=== PATIENT | male | born 1985 | race Two or more races ===

== ENCOUNTER 2021-03-05 12:33 | Inpatient (IN) | payer OTHER ==
[~2021-03-05] VITALS: Ht 172.7 cm; Wt 77.0 kg
[2021-03-05] MEDS ORDERED: cefTRIAXone 1GM/50ML D5W 50 ML IV ONE (14:45)
[2021-03-05] MEDS ORDERED: CLINDAMYCIN 900MG IV 50 ML IV ONE (14:45)
[2021-03-05] MEDS ORDERED: SODIUM CHLORIDE 0.9% 1,000 ML IV ONE (14:45)
[2021-03-05 15:28] LABS: Basophils # (auto) 0 10 ^3/uL (0-0.2); Basophils % (auto) 0.3 % (0.0-2.0); Eosinophils # (auto) 0.1 10 ^3/uL (0-0.8); Eosinophils % (auto) 0.9 % (0.0-7.0); Hematocrit 43.8 % (41.0-53.0); Hemoglobin 15.1 g/dL (13.5-17.5); Lymphocytes # (auto) 0.7 10 ^3/uL (0.4-5.4); Lymphocytes % (auto) 4.8 % (10.0-50.0); Mean Corpuscular Hemoglobin 31.4 pg (28.0-32.0); Mean Corpuscular Hgb Conc. 34.5 g/dL (32.0-36.0); Mean Corpuscular Volume 91.2 fL (80.0-100.0); Monocytes # (auto) 1.4 10 ^3/uL (0-1.3); Monocytes % (auto) 9.1 % (0.0-12.0); Neutrophils % (auto) 84.9 % (37.0-80.0); Red Blood Cells 4.81 10^6/uL (4.5-5.90); Red Cell Distribution Width 13.1 % (11.8-14.3); White Blood Cell 15.3 10^3/uL (4.4-10.8)
[2021-03-05 15:47] LABS: Calcium 8.8 mg/dL (8.5-10.1); Potassium 5.2 mmol/L (3.5-5.1)
[2021-03-05 15:52] LABS: Albumin 3.2 g/dL (3.4-5.0); BUN/Creatinine Ratio 12.5; Total Protein 7.9 g/dL (6.4-8.2)
[2021-03-05] MEDS ORDERED: IOHEXOL 300 MG/ML 100ML BOTTLE IJ ONE (16:08)
[2021-03-05] MEDS ORDERED: VANCOMYCIN PER PHARMACY 0 MG IV SCH (18:30)
[2021-03-05] MEDS ORDERED: VANCOMYCIN 1GM/250ML 250 ML IV SCH (22:00)
[2021-03-05] MEDS: VANCOMYCIN 1GM/250ML 250 ML IV SCH (22:32)
[2021-03-05 22:42] VITALS: BP 112/70
[2021-03-06] MEDS ORDERED: ONDANSETRON HCL 4 MG/2 ML VIAL IV PRN (02:00)
[2021-03-06 05:00] VITALS: BP 108/70
[2021-03-06] MEDS: VANCOMYCIN 1GM/250ML 250 ML IV SCH ×2 (05:50→17:43)
[2021-03-06 06:44] LABS: Basophils # (auto) 0 10 ^3/uL (0-0.2); Basophils % (auto) 0.3 % (0.0-2.0); Eosinophils # (auto) 0.1 10 ^3/uL (0-0.8); Eosinophils % (auto) 0.8 % (0.0-7.0); Hematocrit 36.3 % (41.0-53.0); Hemoglobin 12.4 g/dL (13.5-17.5); Lymphocytes # (auto) 0.9 10 ^3/uL (0.4-5.4); Lymphocytes % (auto) 6.3 % (10.0-50.0); Mean Corpuscular Hemoglobin 31.1 pg (28.0-32.0); Mean Corpuscular Hgb Conc. 34.3 g/dL (32.0-36.0); Mean Corpuscular Volume 90.7 fL (80.0-100.0); Monocytes # (auto) 1.5 10 ^3/uL (0-1.3); Monocytes % (auto) 10.8 % (0.0-12.0); Neutrophils # (auto) 11.6 10 ^3/uL (1.6-8.6); Neutrophils % (auto) 81.8 % (37.0-80.0); Nucleated Red Blood Cells % 0.1 %; Red Blood Cells 4.01 10^6/uL (4.5-5.90); Red Cell Distribution Width 12.9 % (11.8-14.3); White Blood Cell 14.1 10^3/uL (4.4-10.8)
[2021-03-06 09:00] VITALS: BP 101/71
[2021-03-06] MEDS: ENOXAPARIN SOD 40 MG/0.4 ML SYRINGE SC SCH (10:00)
[2021-03-06 11:44] LABS: INR 1.1 (0.9-1.15); Partial Thromboplastin Time 33.9 sec (23.6-33.0)
[2021-03-06] MEDS: PIPERACILLIN-TAZO 4.5GM 100 ML IV SCH ×2 (12:57→21:18)
[2021-03-06 13:00] VITALS: BP 116/69
[2021-03-06 17:00] VITALS: BP 112/71
[2021-03-06 22:02] VITALS: BP 109/69
[2021-03-07] MEDS: VANCOMYCIN 1GM/250ML 250 ML IV SCH ×3 (02:48→20:30)
[2021-03-07] MEDS: PIPERACILLIN-TAZO 4.5GM 100 ML IV SCH ×3 (04:31→20:45)
[2021-03-07 05:25] VITALS: BP 111/68
[2021-03-07 07:09] LABS: Basophils # (auto) 0.1 10 ^3/uL (0-0.2); Basophils % (auto) 0.6 % (0.0-2.0); Eosinophils # (auto) 0.2 10 ^3/uL (0-0.8); Eosinophils % (auto) 1.6 % (0.0-7.0); Hematocrit 36.6 % (41.0-53.0); Hemoglobin 12.6 g/dL (13.5-17.5); Lymphocytes # (auto) 0.8 10 ^3/uL (0.4-5.4); Lymphocytes % (auto) 6.7 % (10.0-50.0); Mean Corpuscular Hemoglobin 31.1 pg (28.0-32.0); Mean Corpuscular Hgb Conc. 34.4 g/dL (32.0-36.0); Mean Corpuscular Volume 90.3 fL (80.0-100.0); Monocytes # (auto) 1.1 10 ^3/uL (0-1.3); Neutrophils # (auto) 9.6 10 ^3/uL (1.6-8.6); Neutrophils % (auto) 82.1 % (37.0-80.0); Nucleated Red Blood Cells % 0.1 %; Red Blood Cells 4.06 10^6/uL (4.5-5.90); White Blood Cell 11.7 10^3/uL (4.4-10.8)
[2021-03-07 07:26] LABS: BUN/Creatinine Ratio 11.1; Calcium 8.2 mg/dL (8.5-10.1); Potassium 3.5 mmol/L (3.5-5.1)
[2021-03-07 09:00] VITALS: BP 112/75
[2021-03-07] MEDS: ENOXAPARIN SOD 40 MG/0.4 ML SYRINGE SC SCH (10:00)
[2021-03-07] MEDS: HYDROcodone-ACET 10/325MG TAB PO PRN ×2 (12:08→23:01)
[2021-03-07] MEDS ORDERED: LIDOCAINE 1% HCL (LOCAL ANESTH.) INJ 20ML MDV ID ONE (12:15)
[2021-03-07] MEDS ORDERED: LIDOCAINE 1% HCL (LOCAL ANESTH.) INJ 20ML MDV ONE (12:23)
[2021-03-07] MEDS ORDERED: BUPIVACAINE 0.5% MPF INJ 30ML SDV IJ ONE (12:23)
[2021-03-07 13:00] VITALS: BP 120/70
[2021-03-07 17:00] VITALS: BP 114/69
[2021-03-07 22:00] VITALS: BP 113/73
[2021-03-08] MEDS: VANCOMYCIN 1GM/250ML 250 ML IV SCH ×4 (01:00→23:38)
[2021-03-08] MEDS: PIPERACILLIN-TAZO 4.5GM 100 ML IV SCH ×3 (04:15→20:57)
[2021-03-08 05:00] VITALS: BP 108/67
[2021-03-08 09:00] VITALS: BP 104/66
[2021-03-08] MEDS: ENOXAPARIN SOD 40 MG/0.4 ML SYRINGE SC SCH (10:00)
[2021-03-08] MEDS: HYDROcodone-ACET 10/325MG TAB PO PRN (11:21)
[2021-03-08 13:00] VITALS: BP 112/69
[2021-03-08 17:22] VITALS: BP 110/72
[2021-03-08 22:01] VITALS: BP 112/64
[2021-03-09] MEDS: PIPERACILLIN-TAZO 4.5GM 100 ML IV SCH ×3 (04:45→20:49)
[2021-03-09 05:00] VITALS: BP 106/67
[2021-03-09 06:49] LABS: Basophils # (auto) 0 10 ^3/uL (0-0.2); Basophils % (auto) 0.5 % (0.0-2.0); Eosinophils # (auto) 0.3 10 ^3/uL (0-0.8); Eosinophils % (auto) 3.5 % (0.0-7.0); Hematocrit 40.2 % (41.0-53.0); Hemoglobin 14.2 g/dL (13.5-17.5); Lymphocytes % (auto) 13.1 % (10.0-50.0); Mean Corpuscular Hemoglobin 31.8 pg (28.0-32.0); Mean Corpuscular Hgb Conc. 35.2 g/dL (32.0-36.0); Mean Corpuscular Volume 90.2 fL (80.0-100.0); Monocytes # (auto) 0.8 10 ^3/uL (0-1.3); Monocytes % (auto) 10.8 % (0.0-12.0); Neutrophils # (auto) 5.4 10 ^3/uL (1.6-8.6); Neutrophils % (auto) 72.1 % (37.0-80.0); Red Blood Cells 4.46 10^6/uL (4.5-5.90); Red Cell Distribution Width 12.9 % (11.8-14.3); White Blood Cell 7.5 10^3/uL (4.4-10.8)
[2021-03-09 09:00] VITALS: BP 116/64
[2021-03-09] MEDS: VANCOMYCIN 1GM/250ML 250 ML IV SCH ×2 (09:34→18:22)
[2021-03-09] MEDS: ENOXAPARIN SOD 40 MG/0.4 ML SYRINGE SC SCH (09:34)
[2021-03-09] MEDS: HYDROcodone-ACET 10/325MG TAB PO PRN (09:58)
[2021-03-09 13:00] VITALS: BP 121/80
[2021-03-09 17:00] VITALS: BP 121/76
[2021-03-09 22:00] VITALS: BP 113/67
[2021-03-10] MEDS: HYDROcodone-ACET 10/325MG TAB PO PRN (00:27)
[2021-03-10] MEDS: VANCOMYCIN 1GM/250ML 250 ML IV SCH ×3 (02:54→18:37)
[2021-03-10] MEDS: PIPERACILLIN-TAZO 4.5GM 100 ML IV SCH ×3 (04:18→21:45)
[2021-03-10 05:00] VITALS: BP 114/70
[2021-03-10 09:00] VITALS: BP 128/80
[2021-03-10] MEDS: ENOXAPARIN SOD 40 MG/0.4 ML SYRINGE SC SCH (10:02)
[2021-03-10 12:12] LABS: Anion Gap 8 (5-15); BUN/Creatinine Ratio 16.2; Blood Urea Nitrogen 12 mg/dL (7-18); Calcium 8.4 mg/dL (8.5-10.1); Carbon Dioxide 29 mmol/L (21-32); Chloride 101 mmol/L (98-107); GFR African American 153 mL/min; GFR Non-African American 126 mL/min; Glucose 119 mg/dL (74-106); Potassium 4.2 mmol/L (3.5-5.1); Sodium 138 mmol/L (136-145)
[2021-03-10 13:00] VITALS: BP 121/74
[2021-03-10 16:46] VITALS: BP 115/69
[2021-03-10 22:00] VITALS: BP 122/77
[2021-03-11] MEDS: VANCOMYCIN 1GM/250ML 250 ML IV SCH ×3 (02:03→18:00)
[2021-03-11] MEDS: PIPERACILLIN-TAZO 4.5GM 100 ML IV SCH ×3 (04:14→22:01)
[2021-03-11 05:00] VITALS: BP 110/78
[2021-03-11] MEDS: ENOXAPARIN SOD 40 MG/0.4 ML SYRINGE SC SCH (09:04)
[2021-03-11 13:01] VITALS: BP 110/75
[2021-03-11 18:25] VITALS: BP 114/86
[2021-03-11 22:00] VITALS: BP 112/72
[2021-03-11] MEDS ORDERED: ACETAMINOPHEN 325 MG TAB PO PRN (22:30)
[2021-03-12] MEDS: VANCOMYCIN 1GM/250ML 250 ML IV SCH ×3 (01:30→17:30)
[2021-03-12] MEDS: PIPERACILLIN-TAZO 4.5GM 100 ML IV SCH ×3 (04:00→21:14)
[2021-03-12 05:33] VITALS: BP 104/65
[2021-03-12 09:00] VITALS: BP 120/75
[2021-03-12] MEDS: ENOXAPARIN SOD 40 MG/0.4 ML SYRINGE SC SCH (09:43)
[2021-03-12 13:00] VITALS: BP 112/71
[2021-03-12 13:56] LABS: Basophils # (auto) 0.2 10 ^3/uL (0-0.2); Basophils % (auto) 1.9 % (0.0-2.0); Eosinophils # (auto) 0 10 ^3/uL (0-0.8); Eosinophils % (auto) 0.5 % (0.0-7.0); Hematocrit 43.7 % (41.0-53.0); Hemoglobin 14.6 g/dL (13.5-17.5); Lymphocytes # (auto) 0.9 10 ^3/uL (0.4-5.4); Mean Corpuscular Hemoglobin 30.3 pg (28.0-32.0); Mean Corpuscular Hgb Conc. 33.5 g/dL (32.0-36.0); Mean Corpuscular Volume 90.5 fL (80.0-100.0); Monocytes # (auto) 0.5 10 ^3/uL (0-1.3); Monocytes % (auto) 6.1 % (0.0-12.0); Neutrophils # (auto) 7.3 10 ^3/uL (1.6-8.6); Neutrophils % (auto) 81.5 % (37.0-80.0); Red Blood Cells 4.83 10^6/uL (4.5-5.90); Red Cell Distribution Width 13.1 % (11.8-14.3); White Blood Cell 8.9 10^3/uL (4.4-10.8)
[2021-03-12 17:00] VITALS: BP 106/76
[2021-03-12 22:36] VITALS: BP 107/72
[2021-03-13] MEDS: VANCOMYCIN 1GM/250ML 250 ML IV SCH ×3 (01:30→17:58)
[2021-03-13] MEDS: PIPERACILLIN-TAZO 4.5GM 100 ML IV SCH ×2 (04:16→12:15)
[2021-03-13] MEDS: ENOXAPARIN SOD 40 MG/0.4 ML SYRINGE SC SCH (10:23)
[2021-03-13] MEDS ORDERED: LEVO500T31 PO (12:49)
== END 2021-03-13 19:38 | DRG 581 ==
LOC: EEVIPCON 12:33 → EDBD 12:33 → ER 12:33 → OVERFLOW 18:07 → WEST WING 21:16
PROVIDERS: ADMIT Internal Medicine; ATTEND Internal Medicine
PROC: 0Y950ZZ Drainage of Right Inguinal Region, Open Approach (ICD-10-PCS; principal; 2021-03-07)
DX: L03.314 Cellulitis of groin (principal); L02.214 Cutaneous abscess of groin; Z90.49 Acquired absence of other specified parts of digestive tract; Z20.822 Contact with and (suspected) exposure to COVID-19
CPT/HCPCS: 36415; 71046; 72193; 80048; 80053; 80202; 82565; 83605; 85025; 85610; 85730; 87040; 87426; 96365; 96367; G0378; J0696; J2001; J2543; J3490